=== PATIENT | female | born 1965 | race Two or more races ===

== ENCOUNTER 2024-01-20 11:23 | Emergency (ER) | payer OTHER ==
[~2024-01-20] VITALS: Ht 160 cm; Wt 77.2 kg
[2024-01-20 11:27] VITALS: BP 152/80; PULSE 108; RESP 18; O2SAT 98
[2024-01-20] MEDS: LORazepam 0.5 MG TAB PO ONE (11:45)
[2024-01-20] MEDS: SODIUM CHLORIDE 0.9% 1,000 ML IV ONE (11:45)
[2024-01-20] MEDS: FOLIC ACID 1 MG, MAGNESIUM SULF SDV 50% 8 MEQ, MULTIPLE VITAMIN 10 ML, THIAMINE INJ 100... INJ SCH (12:55)
== END 2024-01-20 13:00 | disposition home or self-care (01) ==
LOC: EDBD 11:23 → EDSEX 11:23 → ER 11:23
DX: F10.10 Alcohol abuse, uncomplicated (principal); K74.60 Unspecified cirrhosis of liver; F12.90 Cannabis use, unspecified, uncomplicated; F32.A Depression, unspecified; K21.9 Gastro-esophageal reflux disease without esophagitis; E78.5 Hyperlipidemia, unspecified; I10 Essential (primary) hypertension; Y90.9 Presence of alcohol in blood, level not specified